=== PATIENT | female | born 1985 | race Caucasian/White ===

== ENCOUNTER 2021-01-16 11:19 | Outpatient (CLI) | payer BC ==
[2021-01-16 10:37] VITALS: BP 111/63
[~2021-01-16 11:19] MED LIST: AC500T PO; IBUP800T26 PO; PRD20T PO
[2021-01-16] MEDS ORDERED: diphenhydrAMINE 50 MG/ML INJ (BENADRYL) IV PRN (11:30)
[2021-01-16] MEDS ORDERED: EPINEPHrine INJECTION 1 MG/ML AMP IM PRN (11:30)
[2021-01-16] MEDS ORDERED: CASIRIVIMAB/IMDEVIMAB 1,200 MG in NS (IVPB) 250 ML IV ONE (11:30)
[2021-01-16 13:18] VITALS: BP 100/50
== END 2021-01-16 13:19 ==
LOC: INFUSION 11:19
PROVIDERS: ATTEND Physician Assistant
DX: Z23 Encounter for immunization (principal); U07.1 COVID-19